=== PATIENT | female | born 1970 | race Caucasian/White ===

== ENCOUNTER → 2016-06-27 | Outpatient (CLI) | payer OTHER | LOC: MMPC 10:00 | PROVIDERS: ATTEND Podiatrist Foot & Ankle Surgery | DX: M79.674 Pain in right toe(s) (principal); M79.675 Pain in left toe(s); L97.519 Non-pressure chronic ulcer of other part of right foot with unspecified severity; M20.41 Other hammer toe(s) (acquired), right foot; M20.42 Other hammer toe(s) (acquired), left foot | CPT/HCPCS: 11056 ×2; 99212; G0463 ==

== ENCOUNTER → 2016-07-18 | Outpatient (CLI) | payer OTHER | LOC: MMPC 10:00 | PROVIDERS: ATTEND Podiatrist Foot & Ankle Surgery | DX: M79.674 Pain in right toe(s) (principal); M79.675 Pain in left toe(s); M20.42 Other hammer toe(s) (acquired), left foot; M20.41 Other hammer toe(s) (acquired), right foot; M24.575 Contracture, left foot; M24.574 Contracture, right foot; L84 Corns and callosities; J45.909 Unspecified asthma, uncomplicated; K21.9 Gastro-esophageal reflux disease without esophagitis; F31.9 Bipolar disorder, unspecified; F19.10 Other psychoactive substance abuse, uncomplicated; F17.209 Nicotine dependence, unspecified, with unspecified nicotine-induced disorders | CPT/HCPCS: 99213; G0463 ==

== ENCOUNTER → 2016-08-22 | Outpatient (CLI) | payer OTHER ==
--- NOTE | 2016-08-22 12:35 | DI ---
XR FOOT COMPLETE MIN 3VW WB,08/22/2016 11:45 AM: Clinical History: Left first metatarsophalangeal joint arthritis. Previous Exam: August 30, 2015 Findings: 3 views of the left foot are obtained, and demonstrate postsurgical changes involving the left first metatarsophalangeal joint consistent with arthroplasty of the joint. There are old healed second and third mid metatarsal fractures with callus formation. The surrounding soft tissues are unremarkable. Impression: No significant change from prior.
--- NOTE | 2016-08-22 12:37 | DI ---
XR FOOT COMPLETE MIN 3VW WB,08/22/2016 11:45 AM: Clinical History: Acquired hammertoe of the right foot. Previous Exam: None at this facility. Findings: 3 weightbearing views of the right foot are obtained, and demonstrate postsurgical changes of the rig ht foot consistent with prior osteotomy and fixation. There are degenerative changes involving the right first metatarsophalangeal joint with osteophyte fo rmation. This is essentially unchanged from the prior exam. Other skeletal structures are unremarkable. The surrounding soft tissues are unremarkable. Impression: Degenerative changes of the right first metatarsophalangeal joint unchanged from the prior exam.
== END ==
LOC: MOB RAD 11:47
PROVIDERS: ATTEND Podiatrist Foot & Ankle Surgery
DX: M20.42 Other hammer toe(s) (acquired), left foot (principal); M79.672 Pain in left foot; M20.41 Other hammer toe(s) (acquired), right foot; M79.671 Pain in right foot; L84 Corns and callosities; F15.21 Other stimulant dependence, in remission; Z01.818 Encounter for other preprocedural examination; F10.21 Alcohol dependence, in remission
CPT/HCPCS: 73630; 99214; G0463

== ENCOUNTER 2016-08-30 10:35 | Observation (INO) | payer OTHER ==
[~2016-08-30 10:35] MED LIST: LIDOCAINE W/ SODIUM BICARB 0.5 ML SYR ONE; Lactated Ringers 1,000 ML PRIMARY IV ONE; ceFAZolin Inj 2gm (Premix) 50 ML IV ONE
[2016-08-30] MEDS ORDERED: ONDANSETRON 4 MG/2 ML VIAL ONE ×2 (12:53→17:19)
[2016-08-30] MEDS ORDERED: DEXAMETHASONE SOD PHOSPHATE 4 MG/1 ML VIAL ONE (12:53)
[2016-08-30] MEDS ORDERED: LIDOCAINE W/ SODIUM BICARB 0.5 ML SYR ONE (13:09)
[2016-08-30] MEDS ORDERED: MIDAZOLAM 5 MG/1 ML ONE (13:09)
[2016-08-30] MEDS ORDERED: MORPHINE SULFATE/PF 10 MG/10 ML AMPULE ONE (13:10)
[2016-08-30] MEDS ORDERED: Lactated Ringers 1,000 ML PRIMARY IV ONE (13:34)
--- NOTE | 2016-08-30 14:04 | CRNA.PROCE ---
Central Neuraxis Block [facility] - - Safety Measures: Time Out Taken - - Type of Block: Subarachnoid Reason for Block: Surgical Sedation Used - Enter Amount Used in Comment Field: Midazolam (mg): Yes (2mg) Positioning: Sitting Skin Prep Used: ChloroPrep Draped: No Skin Infiltration - Enter Amount Used in Comment Field: 1% Xylocaine with Bicarb (mL): Yes (skinwheal) Spinal Needle Used: 25 Maggie 80 mm Local Anesthetic - Enter Amount Used in Comment Field: 0.75 % Bupivacaine with Dextrose (ml): Yes (15mg) Additive Used - Enter Amount Used in Comment Field: Preservative Free Morphine ( mg): Yes (.15mg), Epinephrine 1:1000 Needle Rinse (mL): Yes (barrel wash) Bioclusive Dressing Applied: No
[2016-08-30] MEDS ORDERED: BUPivacaine Liposome/PF (Exparel) Inj 20ml vial INFIL ONE (14:33)
[2016-08-30] MEDS ORDERED: NORMAL SALINE 10 ML SYRINGE FLUSH IVP PRN ×2 (15:31→17:08)
--- NOTE | 2016-08-30 15:57 | GEN.OPNOTE ---
Operative Report Surgeon: Sy Harper DPM Anesthesia Type: Regional, Local (with some post operative exparel.), MAC Anesthesia Provider: Shiva Hopkins CRNA Surgery Date: 08/30/16 Preoperative Diagnosis: 1. Right 2nd and 3rd hammertoes. 2. Right 3rd and 4th aductovarus hammertoes. 3. Toe tip calluses / pre-ulcerative secondary to hammertoes. 4. Pain. Postoperative Diagnosis: 1. Right 2nd and 3rd hammertoes. 2. Right 3rd and 4th aductovarus hammertoes. 3. Toe tip calluses / pre-ulcerative secondary to hammertoes. 4. Pain. Procedure: 1. Hammertoe reduction with Arthrodesis of the right 2nd and 3rd PIPJ bilaterally. 2. Percutaneous tenotomies of the right 4th and 5th and left 4th toes. Estimated Blood Loss (mL): 2 (a pneumatic cuff was used on the left ankle for 45 minutes and on the right ankle for 41 minutes, at 250 mmHg pressure.) Fluids: 2 g of Ancef preoperatively. 1400 mL's lactated Ringer's. Exparel injected subcutaneously postoperatively. Complications: None Indications for the Procedure: Ongoing pain and increasing preoperative calluses of the tips of the second and third toes bilaterally. Description of Procedure: The patient was brought to the operating room and placed in the supine position. They were given a spinal, and MAC was continued. Both feet were then prepped and draped in the usual sterile fashion. A timeout was performed. Attention was directed to the right fourth and fifth toes. Utilizing a #18- gauge needle a percutaneous tenotomy of the right fourth flexor digitorum longus tendon was performed through the flexor crease at the level of the middle phalanx. The tip of the 18-gauge needle was then brushed medial to laterally cutting the tendon. The toe now remains in a straighter position. This was then repeated to the right fifth toe. Next to the left fourth toe, utilizing a #18-gauge needle a percutaneous tenotomy of the left fourth flexor digitorum longus tendon was performed through the flexor crease at the level of the middle phalanx. The tip of the 18 -gauge needle was then brushed medial to laterally cutting the tendon. The toe now remains in a straighter position. The left foot was then exsanguinated with an elastic Esmarch, after which a pneumatic cuff was inflated about the left ankle to 250 mmHg pressure. Attention was directed to the left second toe where a dorsal linear incision was made from the middle phalanx back to the metatarsophalangeal joint. This was deepened by sharp and blunt dissection to level of the extensor tendons. The extensor tendons were then transected at the second proximal phalangeal neck. Then reflected distally to expose the proximal interphalangeal joint. The collateral ligaments released from the joint as well. The head of the proximal phalanx was then removed with a sagittal saw. The [employer] Pro- Toe hammertoe set was then opened. The Pro-Toe K wire was then placed down the proximal phalanx 1 cm. This measured approximately length making sure there was room for the implant. Next a K wire was placed into the middle phalanx, and over it the planar from the [employer] Pro-Toe set was used to remove the cartilage and subchondral bone plate. The middle and proximal phalanges were then measured for the appropriate sized pro toe implant. A [employer] PRO-TOE VO Blade 3.2mm X 16mm, with 10 degree angle was selected for the second toe. And was placed to fixate the 2nd toe PIPJ after prepping the middle phalanx. C-arm showed no space and tight fixation. Attention was next directed to the left third toe where a dorsal linear incision was made from the middle phalanx back to the metatarsophalangeal joint. This was deepened by sharp and blunt dissection to level of the extensor tendons. The extensor tendons were then transected at the third proximal phalangeal neck. Then reflected distally to expose the proximal interphalangeal joint. The collateral ligaments released from the joint as well. The head of the proximal phalanx was then removed with a sagittal saw. The [employer] Pro-Toe hammertoe set was then opened. The Pro-Toe K wire was then placed down the proximal phalanx 1 cm. This measured approximately length making sure there was room for the implant. Next a K wire was placed into the middle phalanx, and over it the planar from the [employer] pro-toe set was used to remove the cartilage and subchondral bone plate. The middle and proximal phalanges were then measured for the appropriate sized pro toe implant. A [employer] PRO-TOE VO Blade 2.4mm X 16mm, with 10 degree angle was selected for the third toe. And was then placed to fixate the 3rd toe PIPJ after prepping the middle phalanx. C-arm showed no space and a tight fixation. Both wounds were copiously irrigated. Extensor tendons were then reapproximated with 4-0 Vicryl. Subcutaneous tissues also closed with 4-0 Vicryl. And the skin was closed with 4-0 nylon. The pneumatic cuff was released from the left ankle after 45 minutes total time. Next attention was directed to the right foot again. The foot was exsanguinated with an Esmarch bandage and the pneumatic cuff was inflated about the right ankle. The right second toe was incised in a dorsal linear incision was made from the middle phalanx back to the metatarsophalangeal joint. This was deepened by sharp and blunt dissection to level of the extensor tendons. The extensor tendons were then transected at the second proximal phalangeal neck. Then reflected distally to expose the proximal interphalangeal joint. The collateral ligaments released from the joint as well. The head of the proximal phalanx was then removed with a sagittal saw. The [employer] Pro- Toe hammertoe set was then opened. The Pro-Toe K wire was then placed down the proximal phalanx 1 cm. This measured approximately length making sure there was room for the implant. Next a K wire was placed into the middle phalanx, and over it the planar from the [employer] Pro-Toe set was used to remove the cartilage and subchondral bone plate. The middle and proximal phalanges were then measured for the appropriate sized pro toe implant. A [employer] PRO-TOE VO Blade 3.2mm X 16mm, with 10 degree angle was selected for the second toe. And was placed to fixate the 2nd toe PIPJ after prepping the middle phalanx. C-arm showed no space and tight fixation. Attention was next directed to the right third toe where a dorsal linear incision was made from the middle phalanx back to the metatarsophalangeal joint. This was deepened by sharp and blunt dissection to level of the extensor tendons. The extensor tendons were then transected at the third proximal phalangeal neck. Then reflected distally to expose the proximal interphalangeal joint. The collateral ligaments released from the joint as well. The head of the proximal phalanx was then removed with a sagittal saw. The [employer] Pro-Toe hammertoe set was then opened. The Pro-Toe K wire was then placed down the proximal phalanx 1 cm. This measured approximately length making sure there was room for the implant. Next a K wire was placed into the middle phalanx, and over it the planar from the [employer] pro-toe set was used to remove the cartilage and subchondral bone plate. The middle and proximal phalanges were then measured for the appropriate sized pro toe implant. A [employer] PRO-TOE VO Blade 2.4mm X 16mm, with 10 degree angle was selected for the third toe. And was then placed to fixate the 3rd toe PIPJ after prepping the middle phalanx. C-arm showed no space and a tight fixation. Both wounds were copiously irrigated. The right second and third extensor tendons were then reapproximated with 4-0 Vicryl. Subcutaneous tissues also closed with 4-0 Vicryl. Postoperative express was injected subcutaneously around the second third metatarsal phalangeal joints, and the first second third intermetatarsal spaces. This was performed bilaterally. And the skin was closed with 4-0 nylon. The pneumatic cuff was released from the right ankle after 41 minutes total time. Dressings consisted of Mastisol and Steri-Strips to reinforce the incision sites. Xeroform over the second third toes bilaterally. Gauze and 1 inch Coban and around the second third toes. And then gauze beneath the fourth and fifth toes, as well as the foot in general, then also covered with Kerlix and a Coban dressing. To help secure the toe dressings. Capillary return was noted to all toes. The patient tolerated the procedure well. And was returned to recovery. Her spinal is still working well.
[2016-08-30] MEDS: HYDROcodone-APAP 7.5 MG-325 MG TABLET PO PRN ×2 (16:05→22:58)
--- NOTE | 2016-08-30 16:47 | DI ---
XR FOOT COMPLETE MIN 3VW,08/30/2016 4:09 PM: Clinical History: Postsurgical changes. Previous Exam: August 22, 2016 Findings: 3 views of the right foot are obtained, and demonstrate postsurgical changes consistent with prior os teotomy of the right first proximal phalanx. Postsurgical changes are also noted of the second and third middle interphalangeal joints. There are distal osteotomies of the proximal phalanges of the second and third digits. Advanced degenerative changes are noted of the right first metatarsophalangeal joint. The surrounding soft tissues are unremarkable. Impression: New postsurgical changes consistent with second and third hammertoe repair. 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
--- NOTE | 2016-08-30 17:00 | PDOC ---
History and Physical - History of Present Illness Date and Time of Service: 08/30/2016 Chief Complaint: Status post hammertoe correction surgery admitted for observation History of Present Illness: This is a 46 years old female with medical history significant for history of asthma, ADHD, bipolar disorder also history of hammertoes bilaterally and because of that she came into the hospital and had surgery for the hammertoes bilaterally done by Dr. Harper today. Postoperatively patient had some nausea and was given Zofran. Dr. Harper wanted her to be admitted to the hospital for observation overnight for pain control and observation as patient lives alone. The patient is still under the effect of the nerve block so she doesn't have pain in her feet and her main complaint is nausea but otherwise denying other complaint. Past Medical History Medical History: 1. Asthma. 2. History of herpes simplex infection. 3. Bipolar disorder. 4. ADHD. 5. 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 6. History of for degenerative lumbar disease. 7. History of hand tremor on propranolol Surgical History: 1. Hysterectomy. 2. Rhizotomy Family History: Reviewed an Not Pertinent Past Social History: Doesn't smoke, used to drink alcohol and use drugs in the past last time was close to 2 years ago. Lives in [place] by herself. 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) Alcohol Use: Sober Medication / Allergies Home Medications: Home Medications Medication Instructions Recorded Confirmed Type Albuterol Sulfate [Proair Hfa] 9 gm IH QID #3 inhaler 05/02/14 08/30/16 Clinic Estradiol [Estrace] 1 mg PO QD #90 tab 05/02/14 08/30/16 Clinic Lisdexamfetamine Dimesylate 20 mg PO BID 06/22/15 08/30/16 History [Vyvanse] Propranolol HCl 10 mg PO BID 06/22/15 08/30/16 History Albuterol/Ipratrop Neb Soln 0.5 ml INH QD 06/27/16 08/30/16 History [Duoneb Neb Soln] Buspirone HCl 1 tab PO 0600,1300 tab 06/27/16 08/30/16 History Fluticasone Propionate 15.8 ml NS BID 06/27/16 08/30/16 History Fluticasone/Vilanterol [Breo 1 each INH DAILY puff 06/27/16 08/30/16 History Ellipta 200-25 Mcg INH] Gabapentin 1 tab PO TID tab 06/27/16 08/30/16 History Hydroxyzine Pamoate 25 mg PO Q4H PRN cap 06/27/16 08/30/16 History Magnesium Chloride [Slow-Mag] 64 mg PO TID tab 06/27/16 08/30/16 History Meloxicam 1 tab PO DAILY tab 06/27/16 08/30/16 History Tizanidine HCl 1 tab PO TID tab 06/27/16 08/30/16 History Acyclovir [Zovirax] 1 tab PO BID tab 08/22/16 08/30/16 History Buspirone HCl 1 tab PO QHS tab 08/22/16 08/30/16 History Cephalexin [Keflex] 1 cap PO BID #20 cap 08/22/16 08/30/16 Clinic Hydrocodone Bit/Acetaminophen 1 tab PO Q4-6H #30 tab 08/22/16 08/30/16 Clinic [[place] 7.5-325 Tablet] Saccharomyces Boulardii [Probiotic] 250 mg PO QAM cap 08/22/16 08/30/16 History Lamotrigine [Lamictal] 150 mg PO BEDTIME 08/30/16 08/30/16 History Allergies/Adverse Reactions: Allergies Allergy/AdvReac Type Severity Reaction Status Date / Time doxycycline [Doxycycline] Allergy Intermediate NAUSEA, Verified 08/30/16 11:07 SEVERE HEADACHE opiates AdvReac Mild NAUSEA Uncoded 08/30/16 11:07 Review of Systems - Review of Systems All Systems: Reviewed & No Additional Complaints Except as Stated Exam - Vitals Vital Signs: Vital Signs Height 5 ft 5 in Weight 150 lb - General General Appearance: POSITIVE: No Acute Distress, Cooperative, Thin Additional General Exam Details: Seems anxious - Head Head Exam: POSITIVE: Normal Inspection - Eye Eye Exam: POSITIVE: Normal Appearance - ENT ENT Exam: POSITIVE: Normal Exam - Neck Neck Exam: POSITIVE: Normal Inspection - Respiratory Respiratory Exam: POSITIVE: Clear to Auscultation - Bilaterally - Cardiovascular Cardiovascular Exam: POSITIVE: RRR - GI/Abdominal GI/Abdominal Exam: POSITIVE: Normal Bowel Sounds, Non Tender, Non Distended, Soft - Rectal Rectal Exam: POSITIVE: Deferred - External Exam: POSITIVE: Deferred - Extremities Extremities Exam: POSITIVE: No Edema Present Additional Extremities Exam Details: Dressing applied to both feet - Back Back Exam: POSITIVE: Normal Inspection - Neurological Neurological Exam: POSITIVE: Alert, Oriented x 3, CN II-XII Intact - Psychiatric Psychiatric Exam: POSITIVE: Anxious - Integumentary Integumentary Exam: POSITIVE: Normal Color Assessment and Plan - Patient Problems (1) Status post hammer toe correction Current Visit: Yes Status: Acute Comment: She had bilateral surgery done, will watch her overnight Dr Harper wrote for pain medication continue with that as needed. Per my discussion with him physical therapy need to change the dressing tomorrow and home tomorrow. Follow up with him as an outpatient (2) Anxiety Current Visit: No Status: Acute Comment: Continue hydroxyzine as needed (3) Bipolar disorder Current Visit: Yes Status: Acute Comment: Continue previous medications (4) ADHD (attention deficit hyperactivity disorder) Current Visit: Yes Status: Acute Comment: Continue home medications
[2016-08-30] MEDS ORDERED: LIDOCAINE W/ SODIUM BICARB 0.5 ML SYR SUBD PRN (17:08)
[2016-08-30] MEDS ORDERED: HYDROXYZINE PAMOATE 25 MG CAPSULE PO PRN (17:24)
[2016-08-30] MEDS: ONDANSETRON 4 MG/2 ML VIAL IVP PRN ×2 (17:30→23:03)
[2016-08-30] MEDS ORDERED: IPRATROPIUM/ALBUTEROL SULFATE 3 ML NEB NEB PRN (17:52)
[2016-08-30] MEDS: Metoclopramide Inj 10 MG/2 ML VIAL IVP PRN (18:39)
[2016-08-30] MEDS ORDERED: diphenhydrAMINE 25 MG CAPSULE PO PRN (19:30)
[2016-08-30] MEDS ORDERED: diphenhydrAMINE 50 MG/1 ML VIAL IVP PRN ×2 (20:39→20:49)
[2016-08-30] MEDS: ACYCLOVIR 400 MG TABLET PO SCH (21:00)
[2016-08-30] MEDS ORDERED: Non-Formulary Drug (Gabapentin [Gabapentin] 1 TAB) PO SCH (21:00)
[2016-08-30] MEDS ORDERED: lamoTRIgine 100 MG TABLET PO SCH (21:00)
[2016-08-30] MEDS: tiZANidine Tab 4 MG TAB PO SCH (21:01)
[2016-08-30] MEDS: GABAPENTIN 400 MG CAPSULE PO SCH (21:02)
[2016-08-30] MEDS: CEPHALEXIN 500 MG CAPSULE PO SCH (21:02)
[2016-08-30] MEDS: Propranolol Tab 10 MG TAB PO SCH (21:03)
[2016-08-30] MEDS ORDERED: Sodium Chloride 0.9% 1,000 ML PRIMARY IV SCH (22:30)
[2016-08-30] MEDS ORDERED: SCOPOLAMINE HYDROBROMIDE 1.5 MG - 1 EACH PATCH TRANSDERM SCH (22:30)
[2016-08-30] MEDS: ALPRAZolam Tab 0.25 MG TABLET PO PRN (22:50)
--- NOTE | 2016-08-30 23:19 | DI ---
XR FOOT COMPLETE MIN 3VW,08/30/2016 3:31 PM: Clinical History: Hammertoe deformities. Previous Exam: August 22, 2016 Findings: 3 views of the left foot are obtained, and demonstrate stable postsurgical changes of the left first metatarsophalangeal joint. Postsurgical changes are seen consistent with a second and third distal osteotomy of the proximal pha langes with fusion of the middle interphalangeal joints consistent with hammertoe repair. There are is callus formation involving the mid second and third metatarsals consistent with healing fractures. Impression: Postsurgical changes as above.
[2016-08-30] MEDS: MAGNESIUM OXIDE 400 MG TABLET PO SCH (23:38)
[2016-08-30] MEDS ORDERED: busPIRone HCL 5 MG TABLET PO SCH (23:45)
[2016-08-31] MEDS: HYDROcodone-APAP 7.5 MG-325 MG TABLET PO PRN ×2 (05:34→09:45)
[2016-08-31] MEDS: Metoclopramide Inj 10 MG/2 ML VIAL IVP PRN (05:35)
[2016-08-31 07:00] VITALS: RESP 20; TEMP 98.3
[2016-08-31] MEDS ORDERED: MAGNESIUM OXIDE 400 MG TABLET PO SCH (07:00)
[2016-08-31] MEDS ORDERED: VILANTEROL INH SCH (07:00)
[2016-08-31] MEDS ORDERED: FLUTICASONE INH SCH (07:00)
[2016-08-31] MEDS: ALPRAZolam Tab 0.25 MG TABLET PO PRN (07:06)
[2016-08-31] MEDS: MAGNESIUM OXIDE 400 MG TABLET PO SCH (07:06)
[2016-08-31] MEDS ORDERED: IPRATROPIUM/ALBUTEROL SULFATE 3 ML NEB NEB PRN ×2 (07:16→07:32)
--- NOTE | 2016-08-31 07:22 | DCSUMMARY ---
Hospitalization Summary Admit Date: 08/30/16 Discharge Date: 08/31/16 Hospital Course: Discharge diagnoses 1. Status post hammertoe correction surgery bilaterally 2. Postoperative nausea and vomiting 3. History of asthma 4. History of herpes simplex infection 5. Bipolar disorder 6. ADHD 7. History of previous alcohol and meth use been clean for almost 2 years 8. History of degenerative lumbar disease 9. History of antrum her on propranolol Hospital course This is a 46 years old female with medical history significant for history of asthma, ADHD, bipolar disorder also history of hammertoes bilaterally for which she came into the hospital and had surgery for that done by Dr. Harper. Postoperatively patient had nausea and vomiting and wanted her to be admitted for observation overnight also for pain control and observation as she lives alone. By the time I saw her she was nauseated but she did not have much pain in her feet because she was still under the effect of the nerve block. We tried multiple medication to try to control her nausea this was also was complicated by anxiety, so in addition to Zofran, metoclopramide and scopolamine patch she needed Also benzodiazepine to help control her symptoms. I saw her the next day she was much better the nausea is gone. Pain seemed to be controlled. her exam was unremarkable. We thought she could be discharged home and follow-up with the carbide powder processor as an outpatient. She will have her dressing changed as recommended by the carbide powder processor and then she will be discharged. I asked also physical therapy to assess her need for a walker. Discharge instruction Diet regular Activity per Dr. Harper recommendation Medications Home Medications Medication Instructions Recorded Confirmed Type Albuterol Sulfate [Proair Hfa] 9 gm IH QID #3 inhaler 05/02/14 08/30/16 Clinic Estradiol [Estrace] 1 mg PO QD #90 tab 05/02/14 08/30/16 Clinic Lisdexamfetamine Dimesylate 20 mg PO BID 06/22/15 08/30/16 History [Vyvanse] Propranolol HCl 10 mg PO BID 06/22/15 08/30/16 History Albuterol/Ipratrop Neb Soln 0.5 ml INH QD 06/27/16 08/30/16 History [Duoneb Neb Soln] Buspirone HCl 1 tab PO 0600,1300 tab 06/27/16 08/30/16 History Fluticasone Propionate 15.8 ml NS BID 06/27/16 08/30/16 History Fluticasone/Vilanterol [Breo 1 each INH DAILY puff 06/27/16 08/30/16 History Ellipta 200-25 Mcg INH] Gabapentin 1 tab PO TID tab 06/27/16 08/30/16 History Hydroxyzine Pamoate 25 mg PO Q4H PRN cap 06/27/16 08/30/16 History Magnesium Chloride [Slow-Mag] 64 mg PO TID tab 06/27/16 08/30/16 History Meloxicam 1 tab PO DAILY tab 06/27/16 08/30/16 History Tizanidine HCl 1 tab PO TID tab 06/27/16 08/30/16 History Acyclovir [Zovirax] 1 tab PO BID tab 08/22/16 08/30/16 History Buspirone HCl 1 tab PO QHS tab 08/22/16 08/30/16 History Cephalexin [Keflex] 1 cap PO BID #20 cap 08/22/16 08/30/16 Clinic Hydrocodone Bit/Acetaminophen 1 tab PO Q4-6H #30 tab 08/22/16 08/30/16 Clinic [[place] 7.5-325 Tablet] Saccharomyces Boulardii [Probiotic] 250 mg PO QAM cap 08/22/16 08/30/16 History Lamotrigine [Lamictal] 150 mg PO BEDTIME 08/30/16 08/30/16 History Follow-up with Dr Harper as scheduled on September 05 With PCP in 1-2 weeks Condition at discharge was stable for discharge Exam - Vitals Vital Signs: Vital Signs Temperature 98.3 F Temperature Source Oral Pulse Rate [Pulse Oximeter] 87 Pulse Rate 58 Respiratory Rate 20 Blood Pressure [Left Arm] 102/60 Blood Pressure [Right Arm] 107/73 Blood Pressure 94/63 Pulse Ox 95 Oxygen Delivery Method Room Air Height 5 ft 5 in Weight 159 lb - General General Appearance: POSITIVE: No Acute Distress, Cooperative, Thin - Head Head Exam: POSITIVE: Normal Inspection, Atraumatic - Eye Eye Exam: POSITIVE: Normal Appearance - ENT ENT Exam: POSITIVE: Normal Exam - Neck Neck Exam: POSITIVE: Normal Inspection - Respiratory Respiratory Exam: POSITIVE: Clear to Auscultation - Bilaterally - Cardiovascular Cardiovascular Exam: POSITIVE: RRR - GI/Abdominal GI/Abdominal Exam: POSITIVE: Normal Bowel Sounds, Non Tender, Non Distended, Soft - Rectal Rectal Exam: POSITIVE: Deferred - External Exam: POSITIVE: Deferred Exam: POSITIVE: Deferred - Extremities Additional Extremities Exam Details: Dressing applied to both feet. She is able to wiggle her toes, capillary refill normal. - Back Back Exam: POSITIVE: Normal Inspection - Neurological Neurological Exam: POSITIVE: Alert, Oriented x 3, CN II-XII Intact, Speech Intact / Clear, Moves All Extremities Equally - Psychiatric Psychiatric Exam: POSITIVE: Normal Affect - Integumentary Integumentary Exam: POSITIVE: Normal Color Patient Problems - Patient Problem List (1) Status post hammer toe correction Status: Acute (2) Anxiety Status: Acute (3) Bipolar disorder Status: Acute (4) ADHD (attention deficit hyperactivity disorder) Status: Acute
[2016-08-31] MEDS ORDERED: busPIRone HCL 5 MG TABLET PO SCH ×2 (08:00→09:00)
[2016-08-31] MEDS: GABAPENTIN 400 MG CAPSULE PO SCH (08:40)
[2016-08-31] MEDS: tiZANidine Tab 4 MG TAB PO SCH (08:41)
[2016-08-31] MEDS: CEPHALEXIN 500 MG CAPSULE PO SCH (08:41)
[2016-08-31] MEDS: Propranolol Tab 10 MG TAB PO SCH (08:42)
[2016-08-31] MEDS: ACYCLOVIR 400 MG TABLET PO SCH (08:42)
[2016-08-31] MEDS ORDERED: Meloxicam Tab 7.5 MG TABLET PO SCH (09:00)
--- NOTE | 2016-09-02 15:53 | OPS CRUTCH ---
Diagnosis : Bilateral Foot Surgery Referral Reason: Gait Training/Dressing Change S: The patient states she is doing very well. She states she is not in any pain; however, she was very drowsy from the medication and she was falling asleep and reporting some lightheadedness. O: The patient transferred from supine to edge of bed with stand by assist. The patient transferred from sit to stand with verbal cueing for proper hand placement on the walker. The patient then ambulated 50 feet and ascended and descended three stairs with walker and right guard rail. The patient then ambulated 50 feet back to her room with one sitting rest break as she was complaining of lightheadedness and dizziness. The patient then transferred back into bed with stand by assist. The patient received wound care. The old bandages were removed and were replaced with Xeroform, Kerlix, and Coban. A: The patient is doing well. She is cleared to go home. P: No further therapy is indicated at this time. MTDD
[2016-09-02] MEDS ORDERED: [UNRECOGNIZED DRUG - OTHER] TRANSDERM SCH (22:30)
== END 2016-08-31 11:32 | disposition home or self-care (01) ==
LOC: SDSC 10:35 → MED/SURG 16:47
PROVIDERS: ADMIT Internal Medicine; ATTEND Internal Medicine
DX: M20.41 Other hammer toe(s) (acquired), right foot (principal); L84 Corns and callosities; M20.42 Other hammer toe(s) (acquired), left foot; M79.671 Pain in right foot; M79.672 Pain in left foot
CPT/HCPCS: 28010 ×3; 28285 ×4; 73630 ×2; 76000; 94640; 94761; 96374; 97116; C9290; J0690; J2274; J2704; J2765; J7620; Q0177; J1100; J2250; J2405; J7030; J7120; Q0163

== ENCOUNTER → 2016-09-05 | Outpatient (CLI) | payer OTHER | LOC: MMPC 10:00 | PROVIDERS: ATTEND Podiatrist Foot & Ankle Surgery | DX: M20.42 Other hammer toe(s) (acquired), left foot (principal); M20.41 Other hammer toe(s) (acquired), right foot; Z98.890 Other specified postprocedural states ==

== ENCOUNTER → 2016-09-12 | Outpatient (CLI) | payer OTHER ==
--- NOTE | 2016-09-12 21:30 | DI ---
RIGHT FOOT, 09/12/2016 2:59 PM: Clinical History: Right foot pain. Previous Exam: 08/30/2016. 3 weightbearing views are submitted. The patient is status post osteotomies of the distal heads of th e proximal phalanges of the second and third toes with placement of a threaded screw to transfix both the proximal and distal phalanges of those toes. The patient is status post osteotomy of the proxima l phalanx of the great toe with placement of a metallic staple. The staple is in proximity to the bas e of the first proximal phalanx. Arthritic changes are present in the first metatarsophalangeal joint . Readin. Status post surgical correction of hammertoes of the second and third toes. 2. Status post osteotomy of the proximal phalanx of the great toe with severe arthritic changes of t he first metatarsophalangeal joint.
== END ==
LOC: MOB RAD 15:09
PROVIDERS: ATTEND Podiatrist Foot & Ankle Surgery
DX: M79.671 Pain in right foot (principal); S90.121A Contusion of right lesser toe(s) without damage to nail, initial encounter; M19.071 Primary osteoarthritis, right ankle and foot; Z98.890 Other specified postprocedural states
CPT/HCPCS: 73630

== ENCOUNTER → 2016-09-26 | Outpatient (CLI) | payer OTHER ==
[2016-09-26 10:48] LABS: BLOOD UREA NITROGEN 11 mg/dL (7-22); BUN/CREATININE RATIO 18.33 (6-20); CALCIUM 9.2 mg/dL (8.7-10.7); EST GLOMERULAR FILTRATION > 60 (>60 ml/min/1.73m(2)); SERUM ALBUMIN 4.3 g/dL (3.5-4.8)
== END ==
LOC: MOB LAB 10:01
PROVIDERS: ATTEND Podiatrist Foot & Ankle Surgery
DX: Z47.89 Encounter for other orthopedic aftercare (principal); M25.571 Pain in right ankle and joints of right foot; Z79.899 Other long term (current) drug therapy; Z98.1 Arthrodesis status
CPT/HCPCS: 36415; 80053

== ENCOUNTER → 2016-10-10 | Outpatient (CLI) | payer OTHER ==
--- NOTE | 2016-10-10 10:25 | DI ---
XR FOOT COMPLETE MIN 3VW WB,10/10/2016 8:49 AM: Clinical History: Hammertoe of the foot. Previous Exam: None at this facility. Findings: 3 views of the left foot are obtained, and demonstrate postsurgical changes consistent with a left fi rst digit hemiarthroplasty. There is also fusion of the middle interphalangeal joint of the second and third digits. There is als o healing metatarsal fractures of the second and third metatarsal. No fractures are seen. Impression: Postsurgical changes as above.
--- NOTE | 2016-10-10 10:28 | DI ---
XR FOOT COMPLETE MIN 3VW WB,10/10/2016 8:49 AM: Clinical History: Right-sided hallux valgus. Previous Exam: September 12, 2016 Findings: 5 views of the right foot are obtained to include a lateral view of the third digit, and demonstrate some listhesis of the middle interphalangeal joint on the proximal phalangeal joint. There has been a distal third proximal phalangeal osteotomy. Very advanced degenerative changes of the right first metatarsophalangeal joint with osteophyte forma tion. The surrounding soft tissues are unremarkable. Impression: No significant change from the prior exam.
== END ==
LOC: MOB RAD 08:50
PROVIDERS: ATTEND Podiatrist Foot & Ankle Surgery
DX: M20.41 Other hammer toe(s) (acquired), right foot (principal); S92.501A Displaced unspecified fracture of right lesser toe(s), initial encounter for closed fracture; M20.42 Other hammer toe(s) (acquired), left foot; M79.674 Pain in right toe(s); R60.0 Localized edema; T84.428A Displacement of other internal orthopedic devices, implants and grafts, initial encounter; W20.8XXA Other cause of strike by thrown, projected or falling object, initial encounter; Y93.89 Activity, other specified; Z98.1 Arthrodesis status; Z72.0 Tobacco use; Z47.89 Encounter for other orthopedic aftercare
CPT/HCPCS: 73630 ×2; G0463

== ENCOUNTER 2016-10-18 06:05 | Day surgery (SDC) | payer OTHER ==
[2016-10-18] MEDS ORDERED: MIDAZOLAM 5 MG/1 ML ONE (07:12)
[2016-10-18] MEDS ORDERED: ONDANSETRON 4 MG/2 ML VIAL ONE (07:14)
[2016-10-18] MEDS ORDERED: BUPivacaine Inj 0.5% PF (5mg/ml) 10ml vial ONE (07:18)
[2016-10-18] MEDS ORDERED: BUPivacaine Liposome/PF (Exparel) Inj 20ml vial INFIL ONE ×3 (07:52→07:57)
[2016-10-18] MEDS ORDERED: NORMAL SALINE 10 ML SYRINGE FLUSH IVP PRN (08:16)
[2016-10-18] MEDS ORDERED: HYDROcodone-APAP 10 MG-325 MG TABLET PO PRN (08:16)
--- NOTE | 2016-10-18 08:41 | GEN.OPNOTE ---
Operative Report Surgeon: Sy Harper DPM Anesthesia Type: Local (3rd ray block right foot with 0.5% marcaine plain. And post operative 3rd ray block with Exparel injection throughout all layers of tissues.), MAC Anesthesia Provider: Kenna Moses CRNA Surgery Date: 10/18/16 Preoperative Diagnosis: Right 3rd toe displacement internal orthopedic device, implant. Right third toe pain. Right third toe closed frature middle phalanx. Postoperative Diagnosis: Right 3rd toe displacement internal orthopedic device, implant. Right third toe pain. Right third toe closed frature middle phalanx. Procedure: Removal of implant deep right third toe. Estimated Blood Loss (mL): 0 (Pneumatic cuff to right ankle at 250mmHg pressure for 25 minutes total time.) Fluids: 2 gm Ancef preoperative. 800 mL Lactated ringers Complications: None, implant removed. Findings at Surgery: Implant was loose and was fracture through the plantar lateral aspect of the middle phalanx. Description of Procedure: The patient, Sharda Abreu, was brought to the operating room and placed in the supine position. Monitored anesthesia care was provided. The right foot was prepped and draped in the usual sterile fashion. A timeout was performed. A right third ray block with 0.5% Marcaine plain was performed. Preoperative radiographs were reviewed. The foot was then exsanguinated with an elastic Esmarch, after which a pneumatic cuff was inflated about the ankle to 250 mmHg pressure. He was reshaped the right third toe where a dorsal incision was made through the prior incision site. Immediately deep to the extensor tendon apparatus. The toe was then flexed noting the Proximal location of the proximal interphalangeal joint. The extensor tendon apparatus was then transected and carried deep into the arthrodesis site. The interphalangeal fibrin and scarring was removed to show the implant. The implant was noted to be loose in the middle phalanx portion. It was grasped distally and retracted. A large needle tilt tray driver was used to grasped the [employer] pro toe hammertoe implant and it was manipulated out of the phalanges. The wound was irrigated. The implant came out without complication. The extensor tendon apparatus was then closed with 4-0 Vicryl suture. Exparel was injected into the layers of tissue about the third ray for long-acting analgesia. The skin and subcutaneous tissue was closed in a single layer fashion with 4-0 nylon. This was reinforced with Mastisol and Steri-Strips. A dressing of Xeroform, gauze, Coban was applied to the toe. And then a dressing of gauze, Kerlix, Coban was applied to the foot to help secure the toe dressing in place. The pneumatic cuff was released from the right ankle after having been inflated for 25 minutes total time at 250 mmHg pressure about the right ankle. Patient tolerated the procedure very well and was returned recovery. Sharda well be encouraged not to manipulate the toe, and to limit her activity for this first week to help prevent bleeding / hematoma formation.
--- NOTE | 2016-10-18 09:32 | DI ---
History: Right third hammertoe Implant malposition Fracture Comparison: 10/10/2016 Findings: Since previous study of October 10, 2016, PIP internal fixation device has been removed from the third toe. There are no other changes There is internal fixation of the PIP joint of the second toe, and there is a staple in the proximal phalanx of great toe. There are moderate to severe degenerative changes of first tarsal metatarsal joint. Impression: PIP fixation device has been removed from the third toe. There've been no other changes since the vonda dy of October 10, 2009
[2016-10-18 11:11] VITALS: TEMP 97.1
[2016-10-18 11:14] VITALS: RESP 16
--- NOTE | 2016-10-18 15:11 | OPS CRUTCH ---
Diagnosis : Right Screw Removal on Foot Referral Reason: Gait Training O: Patient was fit with crutches and received gait training both on level surfaces and up and down stairs with heel touch weight-bearing. The patient was instructed to slow down speed of movement. P: No further therapy is indicated at this time. MTDD
== END 2016-10-18 10:30 | disposition home or self-care (01) ==
LOC: SDSC 06:05
PROVIDERS: ATTEND Podiatrist Foot & Ankle Surgery
DX: M20.41 Other hammer toe(s) (acquired), right foot (principal); R60.0 Localized edema; M20.42 Other hammer toe(s) (acquired), left foot; S92.501A Displaced unspecified fracture of right lesser toe(s), initial encounter for closed fracture; M79.674 Pain in right toe(s); T84.428A Displacement of other internal orthopedic devices, implants and grafts, initial encounter; W22.8XXA Striking against or struck by other objects, initial encounter
CPT/HCPCS: 20680; 73630; 97116; C9290; J0690; J2250; J2405; J2704; J3490; J7120